=== PATIENT | female | born 1975 | race Hispanic/Latino ===

== ENCOUNTER 2021-02-19 16:46 | Emergency (ER) | payer MEDICAID, OTHER ==
[2021-02-20] MEDS ORDERED: LIDOCAINE (2%) 20 MG/1 ML VIAL 20 ML MDV INFILTRATI STA
[2021-02-20] MEDS ORDERED: TETANUS,DIPH,PERTUSS(ACELL) VACCINE 0.5 ML SYRINGE IM ONE (00:04)
--- NOTE | 2021-02-20 00:11 | Emergency Department Report ---
ED Laceration HPI - HPI Chief Complaint: Laceration/Recheck/Suture Stated Complaint: CUT HAND Time Seen by Provider: 02/20/21 00:00 Location: Upper Extremity (left hand) Severity: mild, moderate Tetanus Status: Not up to Date Laceration Symptoms: Yes Pain, No Foreign Body Sensation, No Numbness, No Weakness Other History: Change in bed when trying to move the plastic from the post with a knife accidentally lost control striking the palm of her left hand in the area of the thenar eminence ED Review of Systems ROS: Stated complaint: CUT HAND Other details as noted in HPI Comment: All other systems reviewed and negative ED Past Medical Hx - Past Medical History Previous Medical History?: Yes Additional medical history: thyroid - Surgical History Past Surgical History?: Yes Hx Cholecystectomy: Yes Additional Surgical History: appendectomy, tubal ligation - Social History Smoking Status: Never Smoker Substance Use Type: None - Medications Home Medications: Home Medications Medication Instructions Recorded Confirmed Last Taken Type Naproxen [Naprosyn] 500 mg PO BID PRN #30 tablet 05/01/18 Unknown Rx Laceration Physical Exam - Exam General: Vital signs noted. No distress. Alert and acting appropriately. Wound Length (cm): 5 Laceration Location: Upper Extremity (Left hand thenar eminence 3) Laceration Exam: Yes Normal Distal CMS, No Foreign Body, No Exposed Tendon, Vessel, or Nerve, No Tendon Injury ED Course Vital Signs 02/19/21 18:05 Temperature 98.1 F Pulse Rate 87 Respiratory 16 Rate Blood Pressure 104/69 O2 Sat by Pulse 97 Oximetry - Laceration /Wound Repair Left Hand Wound Location: upper extremity Irrigated w/ Saline (ccs): 5 Betadine Prep?: Yes Anesthesia: 1% Lidocaine Wound Debrided: minimal Wound Repaired With: sutures Suture Size/Type: 4:0, proline Number of Sutures: 6 Layer Closure?: No Sterile Dressing Applied?: Yes Critical care attestation.: If time is entered above; I have spent that time in minutes in the direct care of this critically ill patient, excluding procedure time. ED Disposition Clinical Impression: Hand laceration Disposition: 01 HOME / SELF CARE / HOMELESS Is pt being admited?: No Does the pt Need Aspirin: No Condition: Stable Instructions: Sutured Wound Care, Laceration Care, Adult, [id number] Additional Instructions: Keep wound clean with antibacterial soap and water follow-up with your primary care doctor in 7 to 10 days to be evaluated for possible suture removal Referrals: CHRISTOPHER CAT MD [Primary Care Provider] - 7-10 days (Please be sure to follow- up with your primary care doctor to be evaluated for possible suture removal)
[2021-02-20 01:12] VITALS: BP 112/72
== END 2021-02-20 01:14 | disposition home or self-care (01) ==
LOC: ED 16:46
DX: S61.412A Laceration without foreign body of left hand, initial encounter (principal); W26.0XXA Contact with knife, initial encounter; Y93.89 Activity, other specified; Y92.89 Other specified places as the place of occurrence of the external cause; Y99.8 Other external cause status
CPT/HCPCS: 90471; 90715; 96372; 99282

== ENCOUNTER 2021-03-07 12:47 | Emergency (ER) | payer MEDICAID ==
[2021-03-07 13:07] VITALS: BP 104/69
--- NOTE | 2021-03-07 14:30 | Emergency Department Report ---
Suture/Staple Removal - [facility] Chief Complaint: Skin/Abscess/Foreign Body Stated Complaint: STITCHES REMOVAL Time Seen by Provider: 03/07/21 13:58 When Sutures or [place] Placed: 11-14 Days Ago Wound Location: Cristobal surface of left hand at base of thumb ED Review of Systems ROS: Stated complaint: STITCHES REMOVAL Other details as noted in HPI Comment: All other systems reviewed and negative Musculoskeletal: myalgia Skin: other (laceration left hand s/p suture placement ) ED Past Medical Hx - Past Medical History Previous Medical History?: No Additional medical history: thyroid - Surgical History Past Surgical History?: Yes Hx Cholecystectomy: Yes Additional Surgical History: appendectomy, tubal ligation - Social History Smoking Status: Never Smoker Substance Use Type: None - Medications Home Medications: Home Medications Medication Instructions Recorded Confirmed Last Taken Type Naproxen [Naprosyn] 500 mg PO BID PRN #30 tablet 05/01/18 Unknown Rx Acetaminophen/Codeine [Tylenol 1 tab PO Q6H PRN #10 tab 02/20/21 Unknown Rx /Codeine # 3 tab] Suture Removal Exam - Exam General: Vital signs noted. No distress. Alert and acting appropriately. Wound: Yes Pathologic Erythema (mild ), Yes Tenderness (Mild ), No Drainage, No Pus, No Wound Dehiscence Other Systems: All other systems reviewed and are unremarkable. ED Course Vital Signs 03/07/21 13:05 Temperature 98.4 F Pulse Rate 76 Respiratory 16 Rate Blood Pressure 104/69 [Right] O2 Sat by Pulse 96 Oximetry ED Recheck MDM - Medical Decision Making All sutures removed without any complications. Pt tolerated well. Critical care attestation.: If time is entered above; I have spent that time in minutes in the direct care of this critically ill patient, excluding procedure time. ED Disposition Clinical Impression: Visit for suture removal Disposition: 01 HOME / SELF CARE / HOMELESS Is pt being admited?: No Does the pt Need Aspirin: No Condition: Stable Instructions: Wound Closure Removal, Care After Additional Instructions: Continue to keep wound clean daily with soap and water, dry well after each cleaning and you can apply thin layer of neosporin after cleaning. Take tylenol or motrin for pain. Follow up with PCP. Return to ED if symptoms changes or worsens in anyway. Referrals: PRIMARY CARE, [Referring] - 3-5 Days Time of Disposition: 14:30
== END 2021-03-07 15:15 | disposition home or self-care (01) ==
LOC: ED 12:47
DX: Z48.02 Encounter for removal of sutures (principal)

== ENCOUNTER 2022-02-20 10:17 | Emergency (ER) | payer MEDICAID ==
[2022-02-20] MEDS ORDERED: DIVALPROEX DR 250 MG TAB PO ONE (11:13)
[2022-02-20] MEDS ORDERED: levETIRAcetam 1000 MG/NS 0.75% 1,000 MG/100 ML BAG IV ONE (11:13)
--- NOTE | 2022-02-20 11:15 | Emergency Department Report ---
ED General Adult HPI - General Chief complaint: Syncope Stated complaint: SYNCOPE Time Seen by Provider: 02/20/22 10:43 Source: patient, EMS Mode of arrival: Stretcher Limitations: No Limitations - History of Present Illness Initial comments: The patient presents to the emergency department for initially what was stated as a syncopal episode. Patient dates she was at work as a automotive service cashier at [employer] when she began to have a weird foggy feeling and passed out. Patient states she was diagnosed with epilepsy approximately a week ago and had an MRI, CT, and EEG done during the first week of January. The patient states the EEG shows that the patient is having seizures. The patient's primary care physician had her on Topamax which she is taking currently and her neurologist has written her for Depakote which she has not taken. Patient states today that she believes she had a seizure. Patient denies any chest pain prior to or after the episode. -: Sudden Severity scale (0 -10): 0 Consistency: now resolved Improves with: none Worsens with: none Associated Symptoms: denies other symptoms Treatments Prior to Arrival: none - Related Data Previous Rx's Medication Instructions Recorded Last Taken Type Naproxen [Naprosyn] 500 mg PO BID PRN #30 tablet 05/01/18 Unknown Rx Acetaminophen/Codeine [Tylenol 1 tab PO Q6H PRN #10 tab 02/20/21 Unknown Rx /Codeine # 3 tab] Allergies Allergy/AdvReac Type Severity Reaction Status Date / Time hydrocodone Allergy Itching Verified 02/20/22 10:26 ED Review of Systems ROS: Stated complaint: SYNCOPE Other details as noted in HPI Comment: All other systems reviewed and negative Constitutional: denies: chills, fever Eyes: denies: eye pain, eye discharge, vision change ENT: denies: ear pain, throat pain Respiratory: denies: cough, shortness of breath, wheezing Cardiovascular: denies: chest pain, palpitations Endocrine: no symptoms reported Gastrointestinal: denies: abdominal pain, nausea, diarrhea Genitourinary: denies: urgency, dysuria, discharge Musculoskeletal: denies: back pain, joint swelling, arthralgia Skin: denies: rash, lesions Neurological: denies: headache, weakness, paresthesias Psychiatric: denies: anxiety, depression Hematological/Lymphatic: denies: easy bleeding, easy bruising ED Past Medical Hx - Past Medical History Previous Medical History?: Yes Hx Seizures: Yes Hx Psychiatric Treatment: Yes (depression,anxiety) Additional medical history: thyroid - Surgical History Hx Cholecystectomy: Yes Additional Surgical History: appendectomy, tubal ligation - Social History Smoking Status: Never Smoker Substance Use Type: None - Medications Home Medications: Home Medications Medication Instructions Recorded Confirmed Last Taken Type Naproxen [Naprosyn] 500 mg PO BID PRN #30 tablet 05/01/18 Unknown Rx Acetaminophen/Codeine [Tylenol 1 tab PO Q6H PRN #10 tab 02/20/21 Unknown Rx /Codeine # 3 tab] ED Physical Exam - General Limitations: No Limitations General appearance: alert, in no apparent distress - Head Head exam: Present: atraumatic, normocephalic - Eye Eye exam: Present: normal appearance, PERRL, EOMI - ENT ENT exam: Present: mucous membranes moist - Neck Neck exam: Present: normal inspection - Respiratory Respiratory exam: Present: normal lung sounds bilaterally. Absent: respiratory distress - Cardiovascular Cardiovascular Exam: Present: regular rate, normal rhythm. Absent: systolic murmur, diastolic murmur, rubs, gallop - GI/Abdominal GI/Abdominal exam: Present: soft, normal bowel sounds. Absent: distended, tenderness - Extremities Exam Extremities exam: Present: normal inspection - Back Exam Back exam: Present: normal inspection - Neurological Exam Neurological exam: Present: alert, oriented X3, CN II-XII intact. Absent: motor sensory deficit - Psychiatric Psychiatric exam: Present: normal affect, normal mood - Skin Skin exam: Present: warm, dry, intact, normal color. Absent: rash ED Course Vital Signs 02/20/22 02/20/22 02/20/22 10:22 10:54 10:55 Temperature 98.3 F Pulse Rate 92 H 77 Respiratory 14 16 Rate Blood Pressure Blood Pressure 117/81 103/69 [Left] O2 Sat by Pulse 99 97 97 Oximetry 02/20/22 02/20/22 02/20/22 11:00 11:15 11:30 Temperature Pulse Rate 83 64 69 Respiratory 18 20 16 Rate Blood Pressure 103/69 111/65 111/65 Blood Pressure [Left] O2 Sat by Pulse 98 98 98 Oximetry 02/20/22 02/20/22 02/20/22 11:45 12:00 12:15 Temperature Pulse Rate 74 62 67 Respiratory 12 17 14 Rate Blood Pressure 106/55 106/55 113/64 Blood Pressure [Left] O2 Sat by Pulse 99 97 100 Oximetry 02/20/22 02/20/22 12:30 12:45 Temperature Pulse Rate 62 99 H Respiratory 14 14 Rate Blood Pressure 94/48 114/75 Blood Pressure [Left] O2 Sat by Pulse 99 99 Oximetry ED Medical Decision Making - Lab Data Result diagrams: 02/20/22 11:32 Lab Results 02/20/22 02/20/22 Range/Units 11:32 11:32 WBC 3.4 L (4.5-11.0) K/mm3 RBC 3.87 (3.65-5.03) M/mm3 Hgb 12.0 (10.1-14.3) gm/dl Hct 35.5 (30.3-42.9) % MCV 92 (79-97) fl MCH 31 (28-32) pg MCHC 34 (30-34) % RDW 13.0 L (13.2-15.2) % Plt Count 361 (140-440) K/mm3 Glenn % (Auto) Foot Piece Assembler Add Manual Diff Complete Total Counted 100 Seg Neuts % (Manual) 49.0 (40.0-70.0) % Band Neutrophils % 0 % Lymphocytes % (Manual) 25.0 (13.4-35.0) % Reactive Lymphs % (Man) 0 % Monocytes % (Manual) 16.0 H (0.0-7.3) % Eosinophils % (Manual) 8.0 H (0.0-4.3) % Basophils % (Manual) 2.0 H (0.0-1.8) % Metamyelocytes % 0 % Myelocytes % 0 % Promyelocytes % 0 % Blast Cells % 0 % Nucleated RBC % Not Reportable Seg Neutrophils # Man 1.7 L (1.8-7.7) K/mm3 Band Neutrophils # 0.0 K/mm3 Lymphocytes # (Manual) 0.9 L (1.2-5.4) K/mm3 Abs React Lymphs (Man) 0.0 K/mm3 Monocytes # (Manual) 0.5 (0.0-0.8) K/mm3 Eosinophils # (Manual) 0.3 (0.0-0.4) K/mm3 Basophils # (Manual) 0.1 (0.0-0.1) K/mm3 Metamyelocytes # 0.0 K/mm3 Myelocytes # 0.0 K/mm3 Promyelocytes # 0.0 K/mm3 Blast Cells # 0.0 K/mm3 WBC Morphology Not Reportable Hypersegmented Neuts Not Reportable Hyposegmented Neuts Not Reportable Hypogranular Neuts Not Reportable Smudge Cells Not Reportable Toxic Granulation Not Reportable Toxic Vacuolation Not Reportable Dohle Bodies Not Reportable Pelger-Huet Anomaly Not Reportable Davie Rods Not Reportable Platelet Estimate Consistent w auto Clumped Platelets Not Reportable Plt Clumps, EDTA Not Reportable Large Platelets Not Reportable Giant Platelets Not Reportable Platelet Satelliting Not Reportable Plt Morphology Comment Not Reportable RBC Morphology Normal Dimorphic RBCs Not Reportable Polychromasia Not Reportable Hypochromasia Not Reportable Poikilocytosis Not Reportable Anisocytosis Not Reportable Microcytosis Not Reportable Macrocytosis Not Reportable Spherocytes Not Reportable Pappenheimer Bodies Not Reportable Sickle Cells Not Reportable Target Cells Not Reportable Tear Drop Cells Not Reportable Ovalocytes Not Reportable Helmet Cells Not Reportable Padilla-Kleindale Bodies Not Reportable Banks Rings Not Reportable Leona Cells Not Reportable Bite Cells Not Reportable Crenated Cell Not Reportable Elliptocytes Not Reportable Acanthocytes (Spur) Not Reportable Rouleaux Not Reportable Hemoglobin C Crystals Not Reportable Schistocytes Not Reportable Malaria parasites Not Reportable Andre Bodies Not Reportable Hem Pathologist Commnt No NT-Pro-B Natriuret Pep 49.34 (0-450) pg/mL - EKG Data -: EKG Interpreted by Me EKG shows normal: sinus rhythm Rate: normal - Medical Decision Making CT of the head was not done due to the patient's recent MRI and CT of the head done within the last 2 weeks. Patient was given Depakote and Keppra in the emergency department and instructed to take her seizure medications at home per her neurologist suggestion Critical care attestation.: If time is entered above; I have spent that time in minutes in the direct care of this critically ill patient, excluding procedure time. ED Disposition Clinical Impression: Seizure Disposition: 01 HOME / SELF CARE / HOMELESS Is pt being admited?: No Does the pt Need Aspirin: No Condition: Stable Instructions: Seizure, Adult Additional Instructions: Return if worse Referrals: CARBUCCIA,LA, MD [Staff Physician] - 3-5 Days Time of Disposition: 13:33
[2022-02-20 11:41] LABS: Hematocrit 35.5 % (30.3-42.9); Mean Corpuscular HGB Conc 34 % (30-34); Mean Corpuscular Volume 92 fl (79-97); Platelet Count 361 K/mm3 (140-440); Red Blood Count 3.87 M/mm3 (3.65-5.03)
[2022-02-20 13:15] LABS: Platelet Estimate Consistent w Auto; RBC Morphology Normal; Total Cells Counted 100
[2022-02-20 14:01] VITALS: BP 111/90
[2022-02-20 14:44] LABS: Blood Urea Nitrogen 11 mg/dL (7-17); Calcium 9.1 mg/dL (8.4-10.2); Hemolysis Index 86
[2022-02-20 15:22] LABS: BUN/Creatinine Ratio 18
--- NOTE | 2022-02-21 13:59 | Electrocardiograph Report ---
Test Date: 2022-02-20 Test Time: 10:42:45 Pat Name: IRIS CANO Department: Room: Gender: F [employer] Worker: ISABEL : 1975 Requested By: ATIF SANDERS Order Number: [id number] Reading MD: Nic Summers Measurements Intervals Brick Rate: 72 P: 7 NC: 141 QRS: 48 QRSD: 68 T: 26 QT: 410 QTc: 448 Interpretive Statements Sinus rhythm No previous ECG available for comparison Electronically Signed On 02-21-2022 13:58:42 EDT by Nic Summers
== END 2022-02-20 14:14 | disposition home or self-care (01) ==
LOC: ED 10:17
DX: R56.9 Unspecified convulsions (principal); Z88.6 Allergy status to analgesic agent
CPT/HCPCS: 36415; 80048; 83880; 85007; 85025; 93005; 96374; 99284; J1953